=== PATIENT | male | born 1985 | race Caucasian/White ===

== ENCOUNTER 2022-04-26 11:58 | Outpatient (CLI) | payer OTHER, SELFPAY ==
[2022-04-26 13:01] LABS: SARS-CoV-2 RNA PCR Positive
== END 2022-04-26 11:59 | disposition home or self-care (01) ==
PROVIDERS: PCP Family Medicine; Visit Provider Physician Assistant
DX: U07.1 COVID-19 (principal)
CPT/HCPCS: U0003; U0005

== ENCOUNTER 2023-01-02 17:17 | Emergency (ER) | payer OTHER, SELFPAY ==
[2023-01-02 17:25] VITALS: BP 116/87; PULSE 91; RESP 18; TEMP 36.8; O2SAT 98
--- NOTE | 2023-01-02 18:59 | ED.URI ---
HPI - URI/Sore Throat General Chief Complaint: Upper Respiratory Infection Stated Complaint: Flu symptoms Time Seen by Provider: 01/02/23 18:50 Source: patient, RN notes reviewed and old records reviewed Mode of arrival: ambulatory Limitations: no limitations History of Present Illness HPI Narrative: 37 year old male presents to [facility] care stating that he AWOKE AT 0400 WITH SEVERE PAIN TO LEFT EAR. HE HAS HAD HEADACHE, COUGH, SINUS DRAINAGE,and sore throat FOR 1 WEEK DURATION.He reports that he did HOME COVID test which was NEGATIVE. PATIENT STATES THAT HE TOOK TYLENOL AT 0400 BUT HAS NOT TAKEN ANY OTC MEDICATIONS SINCE. He reports that he has been taking Advil, NyQuil, ear comfort drop and some vitamin C for his symptoms. MD elicited complaint: cough, sore throat and other (headache, left ear pain) Onset (ago): week(s) (1 week for cough cold symptoms 1 day left ear) Consistency: constant Pain scale (0-10): 9 Treatments prior to arrival: ibuprofen and other (NyQuil,ear comfort drops, vitamin C) Related Data Allergies Allergy/AdvReac Type Severity Reaction Status Date / Time No Known Allergies Allergy Verified 01/04/23 08:32 Review of Systems Review of Systems: CONSTITUTIONAL:Reports malaise, chills, sweats, or fever. EYES: Denies visual changes, redness, or discharge. ENT: Reports rhinorrhea, congestion, sinus pain, left otalgia and sore throat. CARDIOVASCULAR: Denies chest pain, palpitations, or edema. RESPIRATORY: Reports cough.? Denies dyspnea. GASTROINTESTINAL: Denies abdominal pain, nausea, vomiting, diarrhea SKIN: Denies rash or itching. MUSCULOSKELETAL: Denies myalgia. NEUROLOGIC: Reports headache. All systems reviewed & are unremarkable except as noted in HPI and below PMFSH Past Medical History Medical History History of kidney stones Family History Family History Mother Breast cancer Social History Social History Smoking status: Never smoker Second hand tobacco smoke exposure: No Alcohol intake: current Drinks per week: 2 Substance use: never Substance use type: does not use Living arrangements: with family Occupation/Education: occupation Gender identity (if verbalized by the patient): Male Sexual Orientation (if Verbalized by the Patient): Straight or Heterosexual Comments At time of signature, agree with nursing past medical, surgical, social and family history. There is no relevant family history pertinent to the presenting complaint Exam Narrative: GENERAL: Well-appearing, well-nourished, and in some acute distress. HEAD: Normocephalic EYES: PERRLA, conjunctivae clear ENT: Nares clear, turbinates edematous and erythematous, clear discharge. Mucous membranes moist. Left TM red and bulging painful, Right TM pearly espinoza with dull light reflex bilaterally; no tragal tenderness. Oropharynx erythematous without lesions. Tonsils not enlarged and without exudate, no drooling, no hoarseness, no trismus, uvula midline.post nasal drainage noted NECK: Supple. No lymphadenopathy CHEST: Clear to auscultation, breath sounds equal. No wheezing, rhonchi, rales, or stridor. No respiratory distress, speaks in full sentences.cough,SAO2 98% on room air HEART: Regular rate and rhythm. No murmur heard. SKIN: Warm, dry, no rash. NEURO: Alert and oriented x3. PSYCH: Normal mood and affect Course Course Emergency Course: Patient is aware of diagnosis, understands and agrees to treatment plan.? Anticipatory guidance given.? Patient agrees to follow-up as directed and is aware of reasons to seek care at the emergency department. Portions of this record may have been created with voice recognition software Level of Care: Express Care Visit Vital Signs Vital signs: Vital Signs Temperat
== END 2023-01-02 19:22 | disposition home or self-care (01) ==
PROVIDERS: Emergency Provider Registered Nurse; PCP Family Medicine
DX: H66.92 Otitis media, unspecified, left ear (principal); J06.9 Acute upper respiratory infection, unspecified
CPT/HCPCS: 87804; 99213; G0463

== ENCOUNTER 2024-03-17 09:43 | Emergency (ER) | payer OTHER, SELFPAY ==
--- NOTE | ~2024-03-17 | US_ITS ---
Testicular ultrasound with doppler. Indication: Pain and swelling. Technique: Real-time sonography the scrotum was performed. Color flow Doppler and Doppler spectral an alysis were performed. Findings: The testes are homogeneous in echotexture bilaterally. There is no evidence of an intrates ticular mass. The right testis measures 4.4 x 2.5 x 3.8 cm and the left 3.7 x 2.2 x 3.0 cm. There is color-flow seen to both testes. Arterial and venous spectral waveforms are seen in both testes. There is no sonographic evidence of torsion. The head of the epididymis is visualized bilaterally and is within normal limits. Small bilateral hydroceles present. Impression: No testicular mass or torsion. Small bilateral hydroceles. Reviewed, dictated and finalized at [facility]. KEY PERSON Impression: No testicular mass or torsion. Small bilateral hydroceles.
[2024-03-17 09:46] VITALS: BP 115/83; PULSE 65; RESP 20; TEMP 36.6; O2SAT 99
--- NOTE | 2024-03-17 09:56 | PC.NURSE ---
Pt c/o left testicular pain that is difficult to get in a comfortable position. Pt denies any urinary symptoms, hematuria. States history of kidney stones
[2024-03-17 10:24] LABS: Basophils Percent Auto 0.8 % (0.2-1.2); Eosinophils Percent Auto 0.6 % (0-4.4); Hematocrit 42.2 % (42.0-52.0); Immature Granulocyte Absolute 0.01 K/mm3 (0.00-0.031); Immature Granulocyte Percent A 0.2 % (0-0.5); Lymphocytes Absolute Auto 1.49 K/mm3 (0.9-3.2); Lymphocytes Percent Auto 31.5 % (18.3-44.2); Mean Corpuscular HGB Conc 35.5 g/dl (32-36); Mean Corpuscular Hemoglobin 32.2 pg (26-34); Mean Corpuscular Volume 90.6 fl (80-100); Monocytes Absolute Auto 0.4 K/mm3 (0.1-0.6); Monocytes Percent Auto 7.8 % (2.6-8.5); Neutrophils Absolute Auto 2.8 K/mm3 (1.3-6.7); Neutrophils Percent Auto 59.1 % (45.5-73.1); Platelet Count Result 225 k/mm3 (150-375); Red Blood Count 4.66 M/mm3 (4.6-6.20); White Blood Count 4.7 K/mm3 (4.5-10.0)
[2024-03-17 10:34] LABS: Add Urine Microscopic? NO; Appearance Urine Clear (Clear); Bilirubin Urine Negative (Negative); Blood Urine Negative (Negative); Color Urine Yellow (Yellow); Glucose Urine UA Negative (Negative); Ketones Urine Negative (Negative); Leukocyte Esterase Ur Negative LEU/UL (Negative); Nitrate Urine Negative (Negative); Protein Urine Negative (Negative); Specific Grav Ur 1.004 (1.001-1.035); Urobilinogen Urine 0.2 mg/dL (<2.0); pH Urine 6.5 (5.0-9.0)
[2024-03-17 10:36] LABS: Alanine Aminotransferase 27 U/L (6-50); Albumin Level 4.4 g/dL (3.5-5.1); Alkaline Phosphatase 69 U/L (38-126); Anion Gap 3 mmol/L (4-12); Aspartate Amino Transferase 25 U/L (17-59); Bilirubin,Total 0.6 mg/dL (0.2-1.3); Blood Urea Nitrogen 18 mg/dL (9-20); Calcium 9.3 mg/dL (8.4-10.2); Carbon Dioxide 27 mmol/L (22-30); Chloride 107 mmol/L (98-107); Estimated CRCL calculation 137 ml/min; Estimated Glomerular Filt Rate > 60; Glucose 89 mg/dL (65-110); Potassium 4.5 mmol/L (3.4-5.0); Sodium 137 mmol/L (137-145)
--- NOTE | 2024-03-17 11:22 | ED.MALEGU ---
HPI - Male Genitourinary General Chief complaint: Urogenital-Male Stated complaint: left testicle pain Time Seen by Provider: 03/17/24 10:00 History of Present Illness HPI Narrative: 39-year-old male presenting with left testicular pain. States that it started yesterday and has just persisted. It is worsened with certain movements. Denies any significant swelling or redness. No dysuria, hematuria, or any urinary complaints. Denies flank pain or abdominal pain. No nausea or vomiting. Related Data Allergies Allergy/AdvReac Type Severity Reaction Status Date / Time No Known Allergies Allergy Verified 03/17/24 09:52 Review of Systems Review of Systems: All systems reviewed & are unremarkable except as noted in HPI and below PMFSH Past Medical History Medical History Hyperlipidemia Erectile dysfunction History of kidney stones Family History Family History Mother Breast cancer Social History Social History Smoking status: Never smoker Second hand tobacco smoke exposure: No Alcohol intake: current Drinks per week: 2 Substance use: never Substance use type: does not use Living arrangements: with family Occupation/Education: occupation Gender identity (if verbalized by the patient): Male Sexual Orientation (if Verbalized by the Patient): Straight or Heterosexual Exam Narrative: GENERAL: Nontoxic, no acute distress, pleasant cooperative HEAD: Normocephalic, atraumatic. EYES: PERRLA and EOMI. ENT: Grossly unremarkable NECK: Supple. CHEST: No respiratory distress. HEART: Regular rate and rhythm ABDOMEN: Soft, nontender, nondistended : performed with RN force adjustment supervisor, no testicular swelling/erythema/tenderness EXTREMITIES: Normal range of motion SKIN: Warm, dry, no rash. NEURO: Alert and oriented x3. PSYCH: Normal mood and affect. Course Vital Signs Vital signs: Vital Signs Temperature 97.9 F 03/17/24 09:46 Pulse Rate 65 03/17/24 09:46 Respiratory Rate 20 03/17/24 09:46 Blood Pressure 115/83 03/17/24 09:46 Pulse Oximetry 99 03/17/24 09:46 Oxygen Delivery Room Air 03/17/24 09:46 Temperature 97.9 F 03/17/24 09:46 Pulse Rate 65 03/17/24 09:46 Respiratory Rate 20 03/17/24 09:46 Blood Pressure 115/83 03/17/24 09:46 Pulse Oximetry 99 03/17/24 09:46 Oxygen Delivery Room Air 03/17/24 09:46 MDM - Male Genitourinary MDM Narrative Medical decision making narrative: 39-year-old male presenting with left testicular pain for 1 day. Vitals are stable. Blood work is unremarkable. UA is unremarkable. Testicular ultrasound shows no acute abnormalities. On further discussion with the patient, he states that his young daughter woke him up yesterday by jumping directly on to his scrotum. States that he did not have much pain directly after it but then it slowly worsened. States that he was mostly concerned as the pain was delayed and he felt that he was unable to control it earlier. States that he feels much more comfortable right now. Discussed the reassuring workup with the patient. Feel he is safe for outpatient management. Discussed appropriate supportive care and follow-up. Appropriate return precautions given. Discharged in stable condition. Lab Data 03/17/24 10:19 03/17/24 10:19 Labs: Lab Results 03/17/24 03/17/24 Range/Units 10:19 10:27 WBC 4.7 (4.5-10.0) K/mm3 RBC 4.66 (4.6-6.20) M/mm3 Hgb 15.0 (14.0-18.0) g/dL Hct 42.2 (42.0-52.0) % MCV 90.6 (80-100) fl MCH 32.2 (26-34) pg MCHC 35.5 (32-36) g/dl RDW 12.0 (11.5-14.5) % Plt Count 225 (150-375) k/mm3 MPV 10.0 (7.4-10.4) fl Immature Gran % (Auto) 0.2 (0-0.5) % Neut % (Auto) 59.1 (45.5-73.1) % Lymph % (Auto) 31.5 (18.3-44.2) % [place] % (Auto) 7.8 (2.6-8.5) % Eos % (Auto) 0.6 (0-4.4) % Baso % (Auto) 0.8 (0.2-1.2) % Lymph # (Auto) 1.49 (0.9-3.2) K/mm3 [place] # (Auto) 0.4 (0.1-0.6) K/mm3 Eos # (Auto) 0.0 (0-0.3) K/mm3 Baso # (Auto) 0.0 (0.0-0.1) K/mm3 Abs Immat Gran (auto) 0.01 (0.00-0.031) K/mm3 Absolute Neuts (auto) 2.8 (1.3-6.7) K/mm3 Absolute Nucleated RBC 0.000 (0.0-0.012) K/mm3 Nucleated RBC % 0.0 (0.0-0.2) % Sodium 137 (137-145) mmol/L Potassium 4.5 (3.4-5.0) mmol/L Chloride 107 (98-107) mmol/L Carbon Dioxide 27 (22-30) mmol/L Anion Gap 3 L (4-12) mmol/L BUN 18 (9-20) mg/dL Creatinine 0.80 (0.7-1.3) mg/dL Estim Creat Clear Calc 137 ml/min Estimated GFR > 60 (59 - ) Glucose 89 (65-110) mg/dL Calcium 9.3 (8.4-10.2) mg/dL Total Bilirubin 0.6 (0.2-1.3) mg/dL AST 25 (17-59) U/L ALT 27 (6-50) U/L Alkaline Phosphatase 69 (38-126) U/L Total Protein 7.0 (6.3-8.2) g/dL Albumin 4.4 (3.5-5.1) g/dL Urine Color Yellow (Yellow) Urine Appearance Clear (Clear) Urine pH 6.5 (5.0-9.0) Ur Specific [place] 1.004 (1.001-1.035) Urine Protein Negative (Negative) mg/dL Urine Glucose (UA) Negative (Negative) mg/dL Urine Ketones Negative (Negative) mg/dL Ur Blood (Man) Negative (Negative) Urine Nitrate Negative (Negative) Urine Bilirubin Negative (Negative) Urine Urobilinogen 0.2 (<2.0) mg/dL Leukocyte Esterase Rfl Negative (Negative) KELLI/UL Critical Care Time Critical Care Time Critical Care Time: No Discharge Plan Discharge Clinical Impression: Pain in testicle due to trauma Patient Disposition: Home, Self-Care Condition: Stable Instructions: Antibiotic Form, Testicle Pain (ED) Additional Instructions: Your blood work, urinalysis, and ultrasound today are very reassuring. We do not see any acute abnormalities. We suspect your pain is related to the recent trauma that you experienced to this area. Please use Tylenol and naproxen for pain control. Follow-up closely with your PCP. If your symptoms worsen or other concerning symptoms arise, please return to the ER. Patient Language: Surinamese Prescriptions: New naproxen 500 mg tablet 500 mg PO BID PRN (Reason: pain) Qty: 30 0RF No Action sildenafil [Viagra] 50 mg tablet 50 mg PO DAILY PRN (Reason: sexual activity) Qty: 30 2RF Rx Instructions: administer 30 minutes to 4 hours before activity Follow-up/Referrals: Marcellus Jackman MD [Primary Care Provider] -
[2024-03-17] MEDS: NAPROXEN 500 MG TABLET PO (12:19)
[2024-03-17 12:40] VITALS: BP 111/83; PULSE 86; RESP 18; O2SAT 97
--- OUTSIDE RECORDS SUMMARY | 2024-03-21 20:54 | XMS_ITS | Data Portability ---
Author Organization [place] - [facility] , [facility] Address [address] [place] [address] Assessment No assessment recorded. Plan of Treatment Reminders Order Date Submit Date Provider Last Modified By Organization Details Last Modified Time Details Appointments None record ed. Lab None record ed. Referral None record ed. Procedures None record ed. Surgeries None record ed. Imaging None record ed. Medication Orders None record ed. Patient TargetsNo targets recorded. Patient Instructions Encounter Date Encounter Id Patient Instructions Last Modified By Organization Details Last Modified Time 03/17/2024 [id number] testicular pain: care instructions [email or web address] Not available 03/17/2024 09:59:30 Reason for Referral None Reported. Medical Equipment None Reported. Allergies No known drug allergies Medications Not known to be on any medication Vitals Date Recorded Body height Body mass index (BMI) Body weight Provider Name and Address Organization Details Last Updated DateTime 03/17/2024 195.58 cm 26.1 kg/m2 68999.32 g MARY Sabillon 1 [facility] [address], [address], [facility] 03/17/2024 09:51:13 Social History None recorded. Functional Status None recorded. Mental Status None recorded. Family History Nothing Reported. Medical History No medical history recorded. Past Encounters Encounter ID Performer Location Encounter Start Date Encounter Closed Date Diagnosis/Indication Diagnosis SNOMED-CT Code Diagnosis ICD10 Code [id number] MARY Sabillon [facility] [address] [place] [address] 03/17/2024 09:48:58 03/17/2024 15:59:05 Pain in testicle 21607603 N50.819 Health Concerns Section Related Observation LastModified by Organization Detai ls LastModified Time None Recorded Concern Status LastModified by Organization Details LastModified Time None Recorded Advance Directives Directive None Recorded Payers Encounter Date Sequence Insurance Name Policy Number Policy Mcpherson Covered Member ID Mcpherson Member ID Guarantor Name 03/17/[address] [facility] [id number] Cisco Perez [id number] Cisco Perez 03/17/2024 3 *SELF PAY* [id number] Cisco Perez [id number] Cisco Perez Notes Date Note Type Note Provider Name and Address Organization Details Recorded Time 4 text/html Patient present with left testicle pain x 2 daysPain is intermittentAdmits to. worsening pain with sittingPatient denies urinary symptomsPatient denies any discharge.Patient denies any changes in skin color MARY Sabillon 1 [facility] [address], [place], [address], [facility] 03/17/2024 09:59:32
--- OUTSIDE RECORDS SUMMARY | 2024-03-21 20:54 | XMS_ITS | Continuity of Care Document ---
Author Organization [place] - [facility] , [facility] [facility] Address [address] [place] [address] Assessment No assessment recorded. Plan of Treatment [...] By Organization Details Last Modified Time 03/17/2024 [id number] testicular pain: care instructions [email or web address] Not available 03/17/2024 09:59:30 Reason for Referral None Reported. Medical Equipment None Reported. Allergies No known drug allergies Medications Not known to be on any medication Vitals Date Recorded Body height Body mass index (BMI) Body weight Provider Name and Address Organization Details Last Updated DateTime 03/17/2024 195.58 cm 26.1 kg/m2 03315.32 g MARY Sabillon [address] [place] [address] [address], [place], [address], [facility] 03/17/2024 09:51:13 Social History None recorded. Functional Status None recorded. Mental Status None recorded. Family History Nothing Reported. Medical History No medical history recorded. Past Encounters Encounter ID Performer Location Encounter Start Date Encounter Closed Date Diagnosis/Indication Diagnosis SNOMED-CT Code Diagnosis ICD10 Code [id number] MARY Sabillon [employer] [place] [address] [place] [address] 03/17/2024 09:48:58 03/17/2024 15:59:05 Pain in testicle 29900544 N50.819 Health Concerns Section Related Observation LastModified by Organization Detai ls LastModified Time None Recorded Concern Status LastModified by Organization Details LastModified Time None Recorded Payers Encounter Date Sequence Insurance Name Policy Number Policy Mcpherson Covered Member ID Mcpherson Member ID Guarantor Name 03/17/2024 1 [facility] [id number] Cisco Perez [id number] Ciscorain Perez 03/17/2024 3 *SELF PAY* [id number] Cisco Perez [id number] Ciscorain Perez Notes Date Note Type Note Provider Name and Address Organization Details Recorded Time 4 text/html Patient present with left testicle pain x 2 daysPain is intermittentAdmits to. worsening pain with sittingPatient denies urinary symptomsPatient denies any discharge.Patient denies any changes in skin color MARY Sabillon 1 [facility] [address], [place], [address], [facility] - [facility] 03/17/2024 09:59:32
== END 2024-03-17 12:42 | disposition home or self-care (01) ==
PROVIDERS: Emergency Provider Emergency Medicine; PCP Family Medicine
DX: S39.94XA Unspecified injury of external genitals, initial encounter (principal); E78.5 Hyperlipidemia, unspecified; Z87.442 Personal history of urinary calculi; W51.XXXA Accidental striking against or bumped into by another person, initial encounter
CPT/HCPCS: 36415; 76870; 80053; 81003; 85025; 93976; 99284; A9270